=== PATIENT | male | born 1975 | race Caucasian/White ===

== ENCOUNTER 2022-05-28 17:09 | Emergency (ER) | payer OTHER ==
[~2022-05-28] VITALS: Ht 182.9 cm; Wt 95.2 kg
[~2022-05-28 17:09] MED LIST: AMLO5 PO; BACL10 PO; HYDCHL50 PO; IBUP800 PO; LOSARTAN POTAS100 M1 PO; MAGNESIUM OXID500 MG; NAPR500EC PO; Neurontin 100100 MG PO; OMEP20ER PO; Robaxin750 MG PO
[2022-05-28 18:34] LABS: Source, Urine Clean Catch
[2022-05-28 18:36] LABS: Appearance, Urine Clear (Clear); Bilirubin, Urine Neg (Neg); Blood, Urine Neg (Neg); Color, Urine Yellow (P-Yellow); Glucose Qualitative, Urine Neg (Neg); Ketones, Urine Neg (Neg); Leukocyte Esterase, Urine Neg (Neg); Nitrite, Urine Neg (Neg); Protein, Urine Neg (Neg); Urobilinogen, Urine NORM (Normal)
== END 2022-05-28 18:55 | disposition home or self-care (01) ==
LOC: ER 17:09
PROVIDERS: Student in an Organized Health Care Education/Training Program
DX: N50.3 Cyst of epididymis (principal); I86.1 Scrotal varices; Z87.891 Personal history of nicotine dependence
CPT/HCPCS: 76870; 81003; 99284-25